=== PATIENT | male | born 1960 | race Caucasian/White ===

== ENCOUNTER 2020-10-18 09:49 | Emergency (ER) | payer OTHER ==
[~2020-10-18] VITALS: Ht 188 cm; Wt 113.4 kg
[2020-10-18] MEDS ORDERED: PROZAC20 M3 PO (10:00)
[2020-10-18] MEDS ORDERED: FINA5 PO (10:00)
[2020-10-18] MEDS ORDERED: OXYC5 PO (12:21)
== END 2020-10-18 13:03 | disposition home or self-care (01) ==
LOC: ER 09:49
DX: S43.005A Unspecified dislocation of left shoulder joint, initial encounter (principal); Z79.899 Other long term (current) drug therapy; W17.2XXA Fall into hole, initial encounter; Y93.89 Activity, other specified
CPT/HCPCS: 23655; 73020; 73030; 96374-59; 96375-59; 99284-25; J1170; J2060; J2405; J2704; J7030